=== PATIENT | male | born 2000 | race Caucasian/White ===

== ENCOUNTER 2021-11-18 18:07 | Emergency (ER) | payer OTHER, SELFPAY ==
[2021-11-18 18:18] VITALS: BP 139/82; PULSE 68; RESP 16; TEMP 36.9; O2SAT 100
--- NOTE | 2021-11-18 18:57 | ED.URI ---
HPI - URI/Sore Throat General Chief Complaint: Upper Respiratory Infection Stated Complaint: Shortness of Breath/Cough Time Seen by Provider: 11/18/21 18:57 Source: patient, RN notes reviewed and old records reviewed Mode of arrival: ambulatory Limitations: no limitations History of Present Illness HPI Narrative: 21-year-old male who presents to [facility] with complaints of shortness of breath and cough which has been going on for 1 week duration. Patient states he has not had a fever chills or sweats denies any sore throat or any ear pain does admit to some sinus drainage and some nasal congestion. Patient reports that his friend has been ill also. He does have history of vaping MD elicited complaint: cough, rhinorrhea and nasal congestion Onset (ago): week(s) (1) Related Data Allergies Allergy/AdvReac Type Severity Reaction Status Date / Time No Known Allergies Allergy Verified 11/18/21 18:26 Review of Systems Review of Systems: CONSTITUTIONAL: Denies fever, chills, or sweats. EYES: Denies visual changes, redness, or discharge. ENT:Positive for rhinorrhea, congestion,no sore throat, or otalgia. CARDIOVASCULAR: chest pain associated with cough,no palpitations, or edema. RESPIRATORY: Positive cough or dyspnea. GASTROINTESTINAL: Denies abdominal pain, nausea, vomiting, or diarrhea. GENITOURINARY: Denies dysuria or hematuria. SKIN: Denies rash or itching. MUSCULOSKELETAL: Denies back pain, joint pain, or myalgia. NEUROLOGIC: Denies headache, numbness, or weakness. PSYCHIATRIC: Positive for history of anxiety or depression. [facility] Past Medical History Medical History (Updated 11/19/21 @ 21:10 by Heidi Wright NP) Fracture of left wrist Generalized anxiety disorder Social History Social History (Updated 11/06/21 @ 10:08 by Amelie Mayfield CMA) Smoking status: Current every day smoker Tobacco type: e-cigarettes/vaping Alcohol intake: current Substance use: never Additional occupation/education comments: [employer] Gender identity (if verbalized by the patient): Male Comments At time of signature, agree with nursing past medical, surgical, social and family history. There is no relevant family history pertinent to the presenting complaint Exam Narrative: GENERAL: Well-appearing, well-nourished, and in no acute distress. HEAD: Normocephalic, atraumatic. EYES: PERRLA and EOMI. ENT: Nares red swollen with clear rhinorrhea or epistaxis. Mucous membranes moist.TM's normal with good light reflex,throat with mild redness no tonsil swelling NECK: Supple.no lymphadenopathy CHEST: Clear to auscultation. No respiratory distress.acute coughSAO2 100% on room air HEART: Regular rate and rhythm. No murmur heard. Normal peripheral pulses. ABDOMEN: Soft, nontender, nondistended, normal active bowel sounds. EXTREMITIES: Normal range of motion. No edema. SKIN: Warm, dry, no rash. NEURO: No focal deficits. Alert and oriented x3. Course Course Level of Care: Express Care Visit Vital Signs Vital signs: Vital Signs Temperature 36.9 C 11/18/21 18:18 Pulse Rate 68 11/18/21 18:18 Respiratory Rate 16 11/18/21 18:18 Blood Pressure 139/82 11/18/21 18:18 Pulse Oximetry 100 11/18/21 18:18 Temperature 36.9 C 11/18/21 18:18 Pulse Rate 68 11/18/21 18:18 Respiratory Rate 16 11/18/21 18:18 Blood Pressure 139/82 11/18/21 18:18 Pulse Oximetry 100 11/18/21 18:18 MDM - URI/Sore Throat Differential Diagnosis Differential diagnosis: Likely upper respiratory infection, influenza, pharyngitis and other (acute cough) Medical Records Attestation: I reviewed the patient's medical records. Critical Care Time Critical Care Time Critical Care Time: No Discharge Plan Discharge Clinical Impression: Upper respiratory infection, Acute cough Patient Disposition: Home, Self-Care Condition: Stable Instructions: Upper Respiratory Infection (ED), Acute Cough (ED) Additional Instr
== END 2021-11-18 19:19 | disposition home or self-care (01) ==
PROVIDERS: Emergency Provider Registered Nurse
DX: J06.9 Acute upper respiratory infection, unspecified (principal); F17.290 Nicotine dependence, other tobacco product, uncomplicated
CPT/HCPCS: 99213; G0463

== ENCOUNTER 2025-01-12 08:20 | Emergency (ER) | payer OTHER, SELFPAY ==
[2025-01-12 08:30] VITALS: BP 140/86; PULSE 60; RESP 20; TEMP 36.7; O2SAT 100
--- NOTE | 2025-01-12 08:56 | ED.BACK ---
HPI - Back Pain/Injury General Chief Complaint: Back Pain/Injury Stated Complaint: herniated disc, lower back pain Patient presents to the [facility] accompanied by family with complaints of lower back pain that started last night. Denies any specific injury or trauma to the area. This morning upon waking pain was worse patient attempted to take 2 ibuprofen without relief of symptoms. Patient states pain is worse with. Does have some pain that goes down into left buttock and down the back of left leg. Denies numbness, tingling, weakness, urinary symptoms, rash, or swelling. Related Data Allergies Allergy/AdvReac Type Severity Reaction Status Date / Time No Known Allergies Allergy Verified 02/02/22 12:55 Review of Systems Constitutional: Constitutional: Reports as per HPI, Denies chills, Denies fatigue, Denies fever(s) and Denies weakness Eyes: Eyes: Reports no additional eye complaints Cardiovascular: Cardiovascular: Reports no additional cardiovascular complaints Respiratory: Respiratory: Reports no additional respiratory complaints Gastrointestinal: Gastrointestinal: Reports no additional gastrointestinal complaints Genitourinary: Genitourinary: Reports as per HPI, Denies oliguria, Denies dysuria, Denies testicular pain, Denies urinary frequency and Denies urinary incontinence Musculoskeletal: Musculoskeletal: Reports as per HPI, Reports back pain, Denies myalgias, Denies arthralgias, Denies joint swelling and Reports muscle cramps Integumentary/Breasts: Skin/Breast: Reports as per HPI Neurologic: Reports as per HPI, Denies focal weakness, Denies numbness and Denies weakness Psychiatric: Psychiatric: Reports no additional psychiatric complaints Endocrine: Endocrine: Reports no additional endocrine complaints Hematologic/Lymphatic: Hematologic/Lymphatic: Reports no additional hematologic/lymphatic complaints Allergic/Immunologic: Allergic/Immunologic: Reports no additional allergic/immunologic complaints PMFSH Past Medical History Medical History Fracture of left wrist Generalized anxiety disorder Social History Social History Smoking status: Current every day smoker Tobacco type: e-cigarettes/vaping Alcohol intake: current Substance use: never Living arrangements: with family Occupation/Education: occupation Additional occupation/education comments: [employer] Gender identity (if verbalized by the patient): Male Exam Const: General: healthy appearing and no acute distress Nutritional Appearance: well nourished Orientation/consciousness: patient oriented x3 Limitations: no limitations Resp: Effort & Inspection: normal respiratory effort Cardio: Rate: regular rate GI: Inspection: non-distended Auscultation: normal bowel sounds : General: Yes bladder normal to palpation and Yes no CVA tenderness Back/Spine/Pelvis: Back: no CVA tenderness Other: No vertebral tenderness noted to the thoracic or lumbar spine. Muscle spasms noted to lower back. No SI or buttocks tenderness. No para spinal muscle tenderness. No rash, redness, swelling or bruising. Skin: General skin exam: normal color Rashes: no rashes Wounds: no wounds Neuro: General: patient oriented x3 and moves all extremities Speech: normal speech Gait exam (Neuro): Normal gait present Extrem: General: normal to inspection, no clubbing, cyanosis or edema, no pedal edema and no edema Psych: Mental Status: mental status grossly normal Affect: normal affect Attitude: cooperative Course Course Level of Care: Express Care Visit Vital Signs Vital signs: Vital Signs Temperature 98.0 F 01/12/25 08:30 Pulse Rate 60 01/12/25 08:30 Respiratory Rate 20 01/12/25 08:30 Blood Pressure 140/86 01/12/25 08:30 Pulse Oximetry 100 01/12/25 08:30 Oxygen Delivery Room Air 01/12/25 08:30 Temperature 98.0 F 01/12/25 08:30 Pulse Rate 60 01/12/25 08:30 Respiratory Rate 20 01/12/25 08:30 Blood Pressure 140/86 01/12/25 08:30 Pulse Oximetry 100 01/12/25 08:30 Oxygen Delivery Room Air 01/12/25 08:30 MDM - Back Pain/Injury MDM Narrative Medical decision making narrative: After Toradol injection while in Express Care. Patient declines. Discharge instructions reviewed with patient, as well as provided in writing per nursing staff. The instructions also include specific and strict return/GO TO THE ER as well as f/u information. All questions have been answered, and the patient deny any further questions with discharge and discharge plan. Differential Diagnosis Differential diagnosis: Likely lumbar radiculopathy, sciatica, strain of lumbar region, renal colic, pyelonephritis and discitis Medical Records Attestation: I reviewed the patient's medical records. Discharge Plan Discharge Clinical Impression: Strain of lumbar region Patient Disposition: Home Condition: Stable Instructions: Antibiotic Form, Acute Low Back Pain (ED), Lower Back Exercises (ED) Additional Instructions: Take pain medications as directed. Take naproxen as directed to decrease inflammation and to help pain. Take Robaxin (muscle relaxer) as directed. Do not drink, drive, operate machinery, or do anything dangerous while taking this medication Take Tramadol as directed for more severe pain. Do not drink, drive, operate machinery, or do anything dangerous while taking this medication. Exercise:Combine aerobic exercise, like walking or swimming, with specific exercises to keep the muscles in your back and abdomen strong and flexible. Proper Lifting:Be sure to lift heavy items with your legs, not your back. Do not bend over to pick something up. Keep your back straight and bend at your knees. Weight:Maintain a healthy weight. Being overweight puts added stress on your lower back. Avoid Smoking:Both the smoke and the nicotine cause your spine to age faster than normal. Proper Posture:Good posture is important for avoiding future problems. A therapist can teach you how to safely stand, sit, and lift. Use warm moist heat to help with pain. Follow up with Primary provider in 2-3 days, This may become a chronic condition and they will be the one to help manage your pain and order additional testing. Follow-up with your doctor for further care and evaluation or seek ER if you develop problems with bladder/bowel function, weakness or loss of feeling in one or both of your legs. Patient Language: Hebrew Prescriptions: New naproxen 500 mg tablet 500 mg PO BID PRN (Reason: pain) Qty: 40 0RF methocarbamol 750 mg tablet 750 mg PO TID PRN (Reason: muscle pain) Qty: 30 0RF No Action albuterol sulfate 90 mcg/actuation HFA aerosol inhaler 2 puff inhalation QID PRN (Reason: shortness of breath or wheezing) Qty: 8.5 0RF Follow-up/Referrals: UNKNOWN,DOCTOR [Primary Care Provider] - Stand Alone Forms: Work/School Release IP Time of Disposition: 09:09
== END 2025-01-12 09:15 | disposition home or self-care (01) ==
PROVIDERS: Emergency Provider Nurse Practitioner Family
DX: S39.012A Strain of muscle, fascia and tendon of lower back, initial encounter (principal); F17.290 Nicotine dependence, other tobacco product, uncomplicated; X58.XXXA Exposure to other specified factors, initial encounter
CPT/HCPCS: 99213; G0463

== ENCOUNTER 2025-02-24 10:12 | Emergency (ER) | payer OTHER, SELFPAY ==
--- OUTSIDE RECORDS SUMMARY | 2025-02-24 10:14 | XMS_ITS | Clinical Summary ---
Author Organization [facility] [address] Address [address] [place] [address] Care Team Providers Care Traffic Director Name Role Phone Stephanie Lomax MD Primary Care Pro vider Allergies No known active allergies Medications No known medications Active Problems No known active problems Social History Tobacco Use Types Packs/Day Years Used Date Smoking Tobacco: Former Cigarettes 0.1 1 Smokeless Tobacco: Never Personal Safety Answer Date Recorded Getting School Help Needed Not on file 09/30 Sex and Gender Information Value Date Recorded Sex Assigned at Not on file Legal Sex 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 Gender Identity Not on file Sexual Orientation Not on file 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 Not on file Not on file Not on file Obstetrics History Last Filed Vital Signs Vital Sign Reading Time Taken Comments Blood Pressure 135/77 03/24/2021 10:43 PM CDT Pulse 76 03/24/2021 10:43 PM CDT Temperature 36.5 C (97.7 F) 03/24/2021 10:43 PM CDT Respiratory Rate 16 03/24/2021 10:43 PM CDT Oxygen Saturation 98% 03/24/2021 10:43 PM CDT Inhaled Oxygen Concentration - - Weight 81.6 kg (180 lb) 03/24/2021 10:43 PM CDT Height 185.4 cm (6' 1) 03/24/2021 10:43 PM CDT Body Mass Index 23.75 03/24/2021 10:43 PM CDT Plan of Treatment Not on file Insurance [facility] Care Teams Traffic Director Relationship Specialty Start Date End Date Stephanie Lomax MD PCP - General 04/09/17
--- OUTSIDE RECORDS SUMMARY | 2025-02-24 10:14 | XMS_ITS | Clinical Summary ---
Author Organization [facility] Address [address] [place] [address] Phone Care Team Providers Care Sales Record Clerk Name Role Phone Provider, None Primary Care Provider Unavailabl e Allergies No known active allergies Medications albuterol 108 (90 Base) MCG/ACT Aerosol Solution take 2 Puffs by inhalation every 4 hours as needed for Cough. 8.5 g 9 Active Additional Information Patient not taking.Reported on 01/03/2025 pseudoephedrine -guaiFENesin (MUCINEX D) 60-600 MG TABLET SR 12 HR Take 1 Tab by mouth every 12 hours. 9 Active Additional Information Patient not taking.Reported on 01/03/2025 ondansetron (ZOFRAN-ODT) 4 MG TABLET DISPERSIBLEIndi cations:Gastroe nteritis Take 1 Tab by mouth every 8 hours as needed for Nausea - 1st line. 10 Tab 9 Active Additional Information Patient not taking.Reported on 01/03/2025 ondansetron (ZOFRAN-ODT) 4 MG TABLET DISPERSIBLEIndi cations:Gastroe nteritis Take 1 Tablet by mouth every 8 hours as needed for Nausea - 1st line. 10 Tablet 4 Active Additional Information Patient not taking.Reported on 01/03/2025 chlorhexidine (PERIDEX) 0.12 % SolutionIndicat ions:Dental abscess 15 mL by Swish & Spit route 2 times daily. 473 mL 5 Active Active Problems No known active problems Encounters Date Type Department Care Team Description 01/03/2025 2:20 PM CDT Urgent Care Visit [facility] [address] [place] [address] Danni Richards, PANELBOARD TANK PUMPER, PARAFFIN PLANT OPERATOR Dental abscess (Primary Dx) Discharge Disposition: Discharged to home or Selfcare 01/03/2025 Travel from Last 3 Months Family History Medical History Relation Name Comments No Known Problems Father No Known Problems Mother Relation Name Status Comments Father Alive Mother Alive Social History Tobacco Use Types Packs/Day Years Used Date Smoking Tobacco: Former Cigarettes Smokeless Tobacco: Former Chew Tobacco Cessation:Counseling Given: Not Answered Alcohol Use Standard Drinks/Week Comments Yes 0 (1 standard drink = 0.6 oz pur e alcohol) socially Sexually Active Control Partners Comments Yes Male Condom Female Sex and Gender Information Value Date Recorded Sex Assigned at Not on file Legal Sex Male 1:33 PM PELT SHEARER Gender Identity Not on file Sexual Orientation Not on file Last Filed Vital Signs Vital Sign Reading Time Taken Comments Blood Pressure 120/66 01/03/2025 2:27 PM CDT Pulse 95 01/03/2025 2:27 PM CDT Temperature 36.6 C (97.9 F) 01/03/2025 2:27 PM CDT Respiratory Rate 16 01/03/2025 2:27 PM CDT Oxygen Saturation 98% 01/03/2025 2:27 PM CDT Inhaled Oxygen Concentration - - Weight 81.6 kg (180 lb) 07/22/2018 2:02 PM PELT SHEARER Height 188 cm (6' 2) 07/22/2018 2:02 PM PELT SHEARER Body Mass Index 23.11 07/22/2018 2:02 PM PELT SHEARER Plan of Treatment Health Maintenance Due Date Last Done Comments Hepatitis C Virus (HCV) Screening 2000 SARS-COV-2 Immunization (2023- season) 2024 Influenza Immunization (#1) 2025 04/21/2012 Respiratory Syncytial Virus (RSV) Immunization (Adult) (1 - 1-dose 75+ series) 01/24/2075 Pneumococcal Immunization Combined Aged Out 2000, 2000, 2000 No longer eligible based on patient's age to complete this topic Hepatitis B Immunization Completed 002, 2000, 2000, Additional history exists DTaP/Tdap/Td Immunization Discontinued 2010, 01/26/2005, 05/23/2001, Additional history exists TdaP Immunization Completed 04/21/2011 Human Papillomavirus (HPV) Immunization Completed 01/10/2015, 01/09/2014, 02/07/2013 Meningococcal Immunization (ACWY) Completed 02/24/2016, 04/21/2011 Rotavirus Immunization Aged Out No lo nger eligible based on patient's age to complete this topic Insurance [facility] Care Teams Sales Record Clerk Relationship Specialty Start Date End Date Provider, None [place] PCP - General 07/22/18
[2025-02-24 10:17] VITALS: BP 142/85; PULSE 58; RESP 18; TEMP 36.7; O2SAT 100
--- NOTE | 2025-02-24 10:31 | ED.DENTAL ---
HPI - Dental/Oral General Chief complaint: Dental/Oral Stated complaint: Tooth pain Time Seen by Provider: 02/24/25 10:27 Source: patient, family (Significant other) and RN notes reviewed Mode of arrival: ambulatory Limitations: no limitations History of Present Illness HPI Narrative: Patient presents today complaining of right lower jaw pain x3 days. Denies fever, shortness of breath, trismus, difficulty swallowing. States his top molar is broken and is poking the bottom teeth and gumline. He has an appointment with an oral surgeon in in April. Currently rates his pain 8/10 and has tried Tylenol without relief. His regular dentist appears to have given him some antibiotics a few months ago, but he states cannot do anything further for his tooth. Related Data Allergies Allergy/AdvReac Type Severity Reaction Status Date / Time No Known Allergies Allergy Verified 02/24/25 10:23 [facility] Past Medical History Medical History Fracture of left wrist Generalized anxiety disorder Social History Social History Smoking status: Current every day smoker Tobacco type: e-cigarettes/vaping Alcohol intake: current Substance use: never Living arrangements: with family Occupation/Education: occupation Additional occupation/education comments: [employer] Gender identity (if verbalized by the patient): Male Comments At time of signature, I have reviewed and agree with nursing past medical, surgical, social and family history unless otherwise noted. Please see nursing chart for further information. There is no relevant family history pertinent to the presenting complaint Exam Narrative: GENERAL: Well-appearing, well-nourished, and in moderate pain distress. HEAD: Normocephalic, atraumatic. EYES: EOMI. No redness or drainage. Conjunctivae normal. ENT: Mucous membranes pink and moist. No facial swelling or redness noted. Tenderness the right lower jaw line. Pain to tooth number 31 with mild surrounding erythema and edema of the gumline. No obvious periapical abscess. NECK: Normal AROM. Supple. No lymphadenopathy. No swelling or erythema of the neck. CHEST: No respiratory distress. EXTREMITIES: Normal range of motion. No edema. SKIN: Warm, dry, no rash. Capillary refill normal. Normal skin turgor. NEURO: No focal deficits. Alert and oriented x3. Gait steady. PSYCH: Normal affect. No signs of depression or anxiety. Course Course Level of Care: Express Care Visit Vital Signs Vital signs: Vital Signs Temperature 98.1 F 02/24/25 10:17 Pulse Rate 58 L 02/24/25 10:17 Respiratory Rate 18 02/24/25 10:17 Blood Pressure 142/85 H 02/24/25 10:17 Pulse Oximetry 100 02/24/25 10:17 Oxygen Delivery Room Air 02/24/25 10:17 Temperature 98.1 F 02/24/25 10:17 Pulse Rate 58 L 02/24/25 10:17 Respiratory Rate 18 02/24/25 10:17 Blood Pressure 142/85 H 02/24/25 10:17 Pulse Oximetry 100 02/24/25 10:17 Oxygen Delivery Room Air 02/24/25 10:17 Reviewed MDM - Dental/Oral MDM Narrative Medical decision making narrative: 25-year-old male patient presents today with severe right lower dental pain x3 days. States he has an appointment with oral surgery and knocked over to take care of this tooth. Upon exam, there is some erythema and edema of the surrounding gum line of tooth number 31. No obvious lower jaw swelling, but there is tenderness to the jaw. No swelling to the neck. No fever, trismus, shortness of breath. Patient will be treated with a course of amoxicillin and short course of Blanco. He will follow-up with oral surgeon during that appointment he is already [place] in April.. ED precautions given. Vital signs stable. Differential Diagnosis Differential diagnosis: Likely gingival abscess, dental caries, toothache, dental abscess and fracture of tooth Critical Care Time Critical Care Time Critical Care Time: No Discharge Plan Discharge Clinical Impression: Pain, dental Patient Disposition: Home Condition: Stable Instructions: Antibiotic Form, Toothache (ED) Additional Instructions: Take the amoxicillin as prescribed until gone. Take the hydrocodone as prescribed for severe pain. Take Tylenol or ibuprofen for mild pain. Do not drive within 6 hours of taking the hydrocodone as it can make you drowsy. Follow-up with oral surgeon as scheduled. As discussed, if you develop fever, significant facial swelling, difficulty opening your mouth, shortness of breath or difficulty swallowing, please go to the ER immediately for further evaluation and treatment. Your blood pressure was elevated above 120/80 today at Urgent Care. This puts you above the threshold for follow up. Please schedule a followup visit with your personal physician as soon as possible, for further evaluation and treatment. Even blood pressure exceeding 120/80 may indicate pre-hypertension. Patient Language: Martiniquais Prescriptions: New amoxicillin 875 mg tablet 875 mg PO Q12H 10 Days Qty: 20 0RF hydrocodone-acetaminophen 5-325 mg tablet 1 tablet PO Q6H PRN (Reason: pain) Qty: 10 0RF Follow-up/Referrals: PHYSICIAN,TELEVISION PRODUCTION TECHNICIAN [Primary Care Provider] - Time of Disposition: 10:36
== END 2025-02-24 10:38 | disposition home or self-care (01) ==
PROVIDERS: Emergency Provider Nurse Practitioner
DX: K08.89 Other specified disorders of teeth and supporting structures (principal); F17.290 Nicotine dependence, other tobacco product, uncomplicated
CPT/HCPCS: 99213; G0463

== ENCOUNTER 2025-02-28 15:24 | Emergency (ER) | payer OTHER, SELFPAY ==
--- OUTSIDE RECORDS SUMMARY | 2025-02-28 15:28 | XMS_ITS | Clinical Summary ---
Author Organization [facility] Medical Office Building B Address [address] [place] [address] Care Team Providers Care Willow Worker Name Role Phone Stephanie Lomax MD Primary Care Pro vider Allergies No known active allergies Medications clindamycin (CLEOCIN) 300 mg capsule Take 1 capsule (300 mg total) by mouth 3 (three) times a day for 7 days 21 capsule 5 03/04/20 25 Active ondansetron ODT (ZOFRAN-ODT) 4 mg disintegrating tablet Take 1 tablet (4 mg total) by mouth every 8 (eight) hours as needed for nausea or vomiting 20 tablet 5 Active Active Problems No known active problems Encounters Date Type Department Care Team Description 02/25/2025 8:04 PM CDT - 02/25/2025 11:48 PM CDT Emergency [facility] Emergency Department [address] [place] [address] Dental infection (Primary Dx) Discharge Disposition: Discharge to home or self care from Last 3 Months Social History Tobacco Use Types Packs/Day Years Used Date Smoking Tobacco: Former Cigarettes 0.1 1 Smokeless Tobacco: Never Personal Safety Answer Date Recorded Have you ever been in or are you currently in a harmful physical or emotional relationship or is someone making you feel afraid or unsafe? 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 Not on file Not on file Obstetrics History Last Filed Vital Signs Vital Sign Reading Time Taken Comments Blood Pressure 152/80 02/25/2025 11:45 PM CDT Pulse 95 02/25/2025 11:45 PM CDT Temperature 37.1 C (98.8 F) 02/25/2025 5:01 PM CDT Respiratory Rate 16 02/25/2025 8:05 PM CDT Oxygen Saturation 99% 02/25/2025 11:45 PM CDT Inhaled Oxygen Concentration - - Weight 81.6 kg (180 lb) 02/25/2025 5:03 PM CDT Height 188 cm (6' 2) 02/25/2025 5:03 PM CDT Body Mass Index 23.11 02/25/2025 5:03 PM CDT Plan of Treatment Health Maintenance Due Date Last Done Comments Depression Screening 2000 Hepatitis C Screening 2000 Regular Well Visit/Exam 18-64 01/24/2018 DTaP/Tdap/Td Vaccine (7 - Td or Tdap) 04/21/2021 04/21/2011, 01/26/2005, 05/23/2001, Additional history exists Influenza Vaccine (#1) 2025 04/21/2012 Pneumococcal vaccine <65 Aged Out 001, 2000, 2000 No longer eligible based on patient's age to complete this topic Hepatitis B Screening Completed 08/15/2001 , 2000, 2000, Additional history exists Varicella Vaccines Completed 04/21/2011, 01/31/2001 HPV Vaccines Completed 01/10/2015, 12/17, 02/07/2013 Procedures Procedure Name Priority Date/Time Associated Diagnosis Comments CT SOFT TISSUE NECK W CONTRAST ED 02/25/2025 10:16 PM CDT EGFR STAT 02/25/2025 8:31 PM CDT DIFFERENTIAL AUTO STAT 02/25/2025 8:3 1 PM CDT SEPSIS LACTATE WITH REFLEX Routine 02/25/2025 8:31 PM CDT COMPREHENSIVE METABOLIC PANEL STAT 02/25/2025 8:31 PM CDT CBC WITH AUTO DIFFERENTIAL STAT 02/25/2025 8:31 PM CDT from Last 3 Months Results * CT Neck Soft Tissue W Contrast (02/25/2025 10:16 PM CDT) Anatomical Region Laterality Modality Head and Neck N/A Computed Tomogra phy 02/25/2025 10:3 9 PM CDT Narrative 02/25/2025 10:46 PM CDT EXAM DESCRIPTION: CT SOFT TISSUE NECK W CONTRAST REASON FOR STUDY: Neck mass, nonpulsatile C/o right sided neck swelling and pain x 1 day. Pt taking hydrocodone and amoxicillin for a dental infection. No surgical hx TECHNIQUE: Post IV contrast scanning from skull base through lung apices. Reconstructed MPR images reviewed. All images stored on PACS. Automated exposure control was used as a dose optimization technique for this examination. CONTRAST TYPE/DOSE: 75mL of IOVERSOL 350 MG IODINE/ML INTRAVENOUS SYRINGE injected via intravenous COMPARISON: None FINDINGS: SOFT TISSUE: The soft tissues within the right flue cleaner space medial to the right mandible ramus appears swollen and indistinct. Fluid appears to infiltrate the soft tissues here. The posterior pharynx is deviated to the left. This appearance is most suggestive of a infectious process. This may represent a phlegmon. No clearly defined abscess is seen at this time. Strandy fluid is seen in the adjacent soft tissues. ORAL CAVITY/FLOOR OF MOUTH, PHARYNX, LARYNX, HYPOPHARYNX: See above LYMPHADENOPATHY: Lymph nodes are seen in the right neck which are likely reactive. MAJOR SALIVARY GLANDS: No solid or cystic masses. No inflammatory changes. THYROID: Normal size. No nodules greater than 1 cm. VASCULATURE: No apparent critical stenosis or occlusion. INTRACRANIAL/SKULL BASE/INCLUDED ORBITS: Limited intracranial evaluation. No abnormal findings. PARANASAL SINUSES: Well-aerated. CERVICAL SPINE: No significant abnormalities. LUNG APICES: Clear. OTHER: Bilateral posterior dental caries are noted IMPRESSION: 1. Soft tissue swelling and fluid in the right flue cleaner space medial to the right mandible ramus. This appearance is most suggestive of a infectious process. This may represent a phlegmon. No clearly defined abscess is seen at this time. The posterior pharynx is deviated to the left. 2. Bilateral posterior dental caries are noted. THIS IS AN ELECTRONICALLY VERIFIED FINAL REPORT 02/25/2025 10:46 PM - Electronically signed by Denzel Navarro M.D. KH: SANDY Report ID: [id number] Reading Location: [id number] Procedure Note Denzel Navarro MD - 02/25/2025 EXAM DESCRIPTION: CT SOFT TISSUE NECK W CONTRAST REASON FOR STUDY: Neck mass, nonpulsatile C/o right sided neck swelling and pain x 1 day. Pt taking hydrocodone and amoxicillin for a dental infection. No surgical hx TECHNIQUE: Post IV contrast scanning from skull base through lung apices. Reconstructed MPR images reviewed. All images stored on PACS. Automated exposure control was used as a dose optimization technique for this examination. CONTRAST TYPE/DOSE: 75mL of IOVERSOL 350 MG IODINE/ML INTRAVENOUSSYRINGE injected via intravenous COMPARISON: None FINDINGS: SOFT TISSUE: The soft tissues within the right flue cleaner space medialto the right mandible ramus appears swollen and indistinct. Fluid appears to infiltrate the soft tissues here. The posterior pharynx is deviated tothe left. This appearance is most suggestive of a infectious process. Thismay represent a phlegmon. No clearly defined abscess is seen at this time. Strandy fluid is seen in the adjacent soft tissues. ORAL CAVITY/FLOOR OF MOUTH, PHARYNX, LARYNX, HYPOPHARYNX: See above LYMPHADENOPATHY: Lymph nodes are seen in the right neck which are likely reactive. MAJOR SALIVARY GLANDS: No solid or cystic masses. No inflammatorychanges. THYROID: Normal size. No nodules greater than 1 cm. VASCULATURE: No apparent critical stenosis or occlusion. INTRACRANIAL/SKULL BASE/INCLUDED ORBITS: Limited intracranialevaluation. No abnormal findings. PARANASAL SINUSES: Well-aerated. CERVICAL SPINE: No significant abnormalities. LUNG APICES: Clear. OTHER: Bilateral posterior dental caries are noted IMPRESSION: 1. Soft tissue swelling and fluid in the right flue cleaner space medialto the right mandible ramus. This appearance is most suggestive of ainfectious process. This may represent a phlegmon. No clearly defined abscess is seenat this time. The posterior pharynx is deviated to the left. 2. Bilateral posterior dental caries are noted. THIS IS AN ELECTRONICALLY VERIFIED FINAL REPORT 02/25/2025 10:46 PM - Electronically signed by Denzel Navarro M.D. KH: SANDY Report ID: [id number] Reading Location: [place] [address] PROCEDURES Final Result * Sepsis Lactate w/ Reflex (02/25/2025 8:31 PM CDT) Sepsis Lactate 1.1 0.7 - 2.0 mmol/L Blood 02/25/2025 8:31 PM CDT 02/25/2025 8:42 PM CDT Patricia MARTIN LAB BLOOD ORDERABLES Final Resu lt [facility] [place] [facility] Department [place] [address] * eGFR (02/25/2025 8:31 PM CDT) eGFR >90 >=60 mL/min/1. 73 m2 Comment: Interpretive Data Reference Interval Normal >/= 90 mL/min/1.73m2 Mildly decreased* 60 - 89 mL/min/1.73m2 Mildly to moderately decreased 45 - 59 mL/min/1.73m2 Moderately to severely decreased 30 - 44 mL/min/1.73m2 Severely decreased 15 - 29 mL/min/1.73m2 Kidney Failure < 15 mL/min/1.73m2 *Relative to young adult level Estimated glomerular filtration rate is determined by the 2020 CKD-EPI equation recommended by the National Kidney Foundation (A Unifying Approach to GFR Estimation: Recommendations of the NKF-ASK Task Force on Reassessing the Inclusion of Race in Diagnosing Kidney Disease, JASN 2020). The CKD-EPI equation should not be used for patients with unstable renal function and has not been validated in children and those over 70. Current interpretive data was last reviewed 2021. Blood 02/25/2025 8:31 PM CDT 02/25/2025 8:42 PM CDT us Patricia MARTIN LAB BLOOD ORDERABLES Final Resu lt [facility] ([place]) [facility] Department [place] [address] * (ABNORMAL) Differential, auto (02/25/2025 8:31 PM CDT) Neutrophil abs 8.04(H) 1.50 - 6.50 K/cumm Imm gran abs 0.04 0.00 - 0.10 K/cumm [facility] Lymphocyte abs 1.27 0.80 - 3.30 K/cumm [facility] Monocyte abs 1.72(H) 0.20 - 0.80 K/cumm [facility] Eosinophil abs 0.01 0.00 - 0.50 K/cumm [facility] Basophil abs 0.04 0.00 - 0.10 K/cumm [facility] Neutrophil pct 72.2 % [facility] Comment: Interpretive Data Percent cell count reference ranges are not reported, since discordance with absolute values may lead to misinterpretation of CBC data. Current Interpretive Data was last revised on 2017. Imm gran pct 0.4 % [facility] Comment: Interpretive Data Percent cell count reference ranges are not reported, since discordance with absolute values may lead to misinterpretation of CBC data. Current Interpretive Data was last revised on 2017. Lymphocyte pct 11.4 % [facility] Comment: Interpretive Data Percent cell count reference ranges are not reported, since discordance with absolute values may lead to misinterpretation of CBC data. Current Interpretive Data was last revised on 2017. Monocyte pct 15.5 % [facility] Comment: Interpretive Data Percent cell count reference ranges are not reported, since discordance with absolute values may lead to misinterpretation of CBC data. Current Interpretive Data was last revised on 2017. Eosinophil pct 0.1 % [facility] Comment: Interpretive Data Percent cell count reference ranges are not reported, since discordance with absolute values may lead to misinterpretation of CBC data. Current Interpretive Data was last revised on 2017. Basophil pct 0.4 % [facility] Comment: Interpretive Data Percent cell count reference ranges are not reported, since discordance with absolute values may lead to misinterpretation of CBC data. Current Interpretive Data was last revised on 2017. Blood 02/25/2025 8:31 PM CDT 02/25/2025 8:42 PM CDT us Patricia MARTIN LAB BLOOD ORDERABLES Final Resu lt [facility] ([place]) [facility] Department [place] [address] * (ABNORMAL) CBC with auto differential (02/25/2025 8:31 PM CDT) WBC 11.12(H) 3.80 - 9.90 K/cumm Hgb 14.4 13.0 - 17.5 g/dL [facility] Hct 42.1 38.9 - 50.3 % [facility] Plt 223 150 - 400 K/cumm [facility] MPV 8.7(L) 9.1 - 12.3 fL [facility] RBC 5.01 4.30 - 5.80 M/cumm [facility] MCV 84.0 81.3 - 96.4 fL [facility] MCH 28.7 27.1 - 33.3 pg [facility] MCHC 34.2 32.3 - 35.7 g/dL [facility] RDW CV 11.9 11.1 - 14.9 % [facility] RDW SD 36.0 35.7 - 48.1 fL [facility] NRBC abs 0.00 0.00 - 0.01 K/cumm [facility] Blood 02/25/2025 8:31 PM CDT 02/25/2025 8:42 PM CDT us Patricia MARTIN LAB BLOOD ORDERABLES Final Resu lt [facility] ([place] Department [place] [address] * (ABNORMAL) Comprehensive metabolic panel (02/25/2025 8:31 PM CDT) Sodium 137 135 - 145 mmol/L [facility] Potassium, pl 4.0 3.3 - 4.9 mmol/L [facility] Chloride 97 97 - 110 mmol/L [facility] CO2 22 22 - 32 mmol/L [facility] Anion gap 18(H) 2 - 15 mmol/L [facility] BUN 9 6 - 25 mg/dL [facility] Creatinine 0.92 0.80 - 1.30 mg/dL [facility] Glucose 91 70 - 199 mg/dL [facility] Comment: Interpretive Data Fasting glucose >/= 126 mg/dl is diagnostic for diabetes. Fasting is defined as no caloric intake for at least 8 hours. Fasting glucose between 100 mg/dl to 125 mg/dl is diagnostic of prediabetes. In a patient with classic symptoms of hyperglycemia or hyperglycemic crisis, a random glucose >/= 200 mg/dl is diagnostic for diabetes. In the absence of unequivocal hyperglycemia, results should be confirmed by repeat testing. The classification and Diagnosis of Diabetes Diabetes Care 202; 46: S19-S40. Current interpretive data was last revised 2022. Calcium 9.8 8.5 - 10.3 mg/dL [facility] Bilirubin, total 1.0 0.1 - 1.2 mg/dL [facility] Protein, pl 8.0 6.5 - 8.5 g/dL [facility] Albumin 4.8 3.5 - 5.0 g/dL [facility] Alk phos 54 40 - 130 Units/L [facility] ALT 9 7 - 55 Units/L [facility] AST 14 10 - 50 Units/L [facility] Blood 02/25/2025 8:31 PM CDT 02/25/2025 8:42 PM CDT us Patricia MARTIN LAB BLOOD ORDERABLES Final Resu lt [facility] ([place] Department [place] [address] from Last 3 Months Insurance Member Subscriber Plan / Payer (Ef fective 2019-Present) Name:Elio Angel Relation to Subscriber:Other Relationship Name:JOSEPH ANGEL Date of :1973 (Home) Address: [facility] [place] [address] Payer ID:[id number] (NAIC) Type:[facility] HMO/PPO Address: [address] [facility] CHOICE PLUS Care Teams Willow Worker Relationship Specialty Start Date End Date Stephanie Lomax MD PCP - General 04/09/17
--- OUTSIDE RECORDS SUMMARY | 2025-02-28 15:28 | XMS_ITS | Clinical Summary ---
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
[2025-02-28 15:30] VITALS: BP 143/74; PULSE 60; RESP 20; TEMP 36.9; O2SAT 100
--- NOTE | 2025-02-28 16:08 | ED_ITS ---
HPI - Dental/Oral General Chief complaint: Dental/Oral Stated complaint: swelling under tongue/tooth infection Time Seen by Provider: 02/28/25 15:46 Source: patient and RN notes reviewed Mode of arrival: ambulatory Limitations: no limitations History of Present Illness HPI Narrative: Patient presents today complaining of right lower dental pain and facial swelling. Patient was initially seen here at [facility] on 02/24/2025 and prescribed amoxicillin and Gail. States symptoms were not improving in the days following, so he was subsequently seen in the ER at [facility] on 02/26/2025. Reports that a CT scan was done at that time and was negative, and he was discharged home on a prescription for clindamycin and Zofran. He has not been taking the Zofran, but has been taking the clindamycin as prescribed. Since being discharged, patient states his swelling has gotten worse. Also reporting swelling underneath his tongue since last night as well as difficulty opening his mouth and feeling as though there is something in his throat. He denies fever or shortness of breath. Currently rates pain 11/24. Related Data Home Medications ?Medication ?Instructions ?Recorded ?Confirmed ?Last Taken ?Type clindamycin HCl 300 mg capsule mg 02/28/25 Unknown History ondansetron 4 mg disintegrating mg 02/28/25 Unknown History tablet Allergies Allergy/AdvReac Type Severity Reaction Status Date / Time No Known Allergies Allergy Verified 02/28/25 15:32 PMFSH Past Medical History Medical History Fracture of left wrist Generalized anxiety disorder Social History Social History (Reviewed 02/28/25 @ 16:11 by Sima Cárdenas, [facility], ) Smoking status: Current every day smoker Tobacco type: e-cigarettes/vaping Alcohol intake: current Substance use: never Living arrangements: with family Occupation/Education: occupation Additional occupation/education comments: [employer] Gender identity (if verbalized by the patient): Male Comments At time of signature, I have reviewed and agree with nursing past medical, surgical, social and family history unless otherwise noted. Please see nursing chart for further information. There is no relevant family history pertinent to the presenting complaint Exam Narrative: GENERAL: Well-appearing, well-nourished, and in no acute distress. HEAD: Normocephalic, atraumatic. EYES: EOMI. No redness or drainage. Conjunctivae normal. ENT: Mucous membranes pink and moist. Throat normal. Uvula midline. Mild sublingual swelling. No sublingual tenderness to palpation. Mild erythema to the right lower posterior gum line surrounding the wisdom tooth that is painful. No obvious periapical abscess. Moderate right lower jaw swelling that is tender to palpation. This extends to the submandibular area. No obvious erythema of the face or lower jaw, but somewhat difficult to assess given facial hair. + trismus noted. Patient is able to open his mouth approximately 3 fingerbreadths. NECK: Normal AROM. Supple. No lymphadenopathy. CHEST: No respiratory distress. Clear to auscultation. HEART: Regular rate and rhythm. No murmur appreciated. EXTREMITIES: Normal range of motion. No edema. SKIN: Warm, dry, no rash. Capillary refill normal. Normal skin turgor. NEURO: No focal deficits. Alert and oriented x3. Gait steady. PSYCH: Normal affect. No signs of depression or anxiety. Course Course Level of Care: Express Care Visit Vital Signs Vital signs: Vital Signs Temperature 98.5 F 02/28/25 15:30 Pulse Rate 60 02/28/25 15:30 Respiratory Rate 20 02/28/25 15:30 Blood Pressure 143/74 H 02/28/25 15:30 Pulse Oximetry 100 02/28/25 15:30 Oxygen Delivery Room Air 02/28/25 15:30 Temperature 98.5 F 02/28/25 15:30 Pulse Rate 60 02/28/25 15:30 Respiratory Rate 20 02/28/25 15:30 Blood Pressure 143/74 H 02/28/25 15:30 Pulse Oximetry 100 02/28/25 15:30 Oxygen Delivery Room Air 02/28/25 15:30 Reviewed Transfer Transfered to: [facility] Transportation: Other (private vehicle) Transfer rationale: Facial swelling, dental infection, failure of 2 outpatient antibiotics. Accepting physician: Jose. Report given to Davonte Lee NP MDM - Dental/Oral MDM Narrative Medical decision making narrative: 25-year-old male patient presents today with ongoing dental pain and facial swelling. He was initially seen at [facility] 4 days ago and put on amoxicillin. Due to continued facial swelling he was seen 2 days ago at [facility], worked up and subsequently placed on clindamycin. Face has continued to swell now includes trismus and globus sensation in the throat as well as some swelling under the tongue. Upon exam patient does have some mild sublingual swelling as well as some moderate right lower jaw swelling and tenderness, erythema of the gumline surrounding the right lower wisdom tooth as well as some trismus. Recommend ER transfer for re-evaluation. Patient does not want to return to [facility], and would like to go at [facility]. Vital signs stable. Differential Diagnosis Differential diagnosis: Likely gingival abscess, dental abscess, fracture of tooth and other (ludwigs angina) Critical Care Time Critical Care Time Critical Care Time: No Discharge Plan Discharge Clinical Impression: Dental abscess Patient Disposition: Acute Care Hospital Condition: Stable Patient Language: Burkinan Prescriptions: No Action amoxicillin 875 mg tablet 875 mg PO Q12H 10 Days Qty: 20 0RF hydrocodone-acetaminophen 5-325 mg tablet 1 tablet PO Q6H PRN (Reason: pain) Qty: 10 0RF clindamycin HCl 300 mg capsule ondansetron 4 mg tablet,disintegrating Follow-up/Referrals: PHYSICIAN,MINUTE CLERK FOR BASIC TRAFFIC [Primary Care Provider] -
== END 2025-02-28 16:13 | disposition short-term general hospital (02) ==
PROVIDERS: Emergency Provider Nurse Practitioner
DX: K04.7 Periapical abscess without sinus (principal); F17.290 Nicotine dependence, other tobacco product, uncomplicated
CPT/HCPCS: 99212; G0463

== ENCOUNTER 2025-02-28 17:16 | Emergency (ER) | payer OTHER, SELFPAY ==
--- NOTE | ~2025-02-28 | XR_ITS ---
CHEST RADIOGRAPH, PA AND LATERAL CLINICAL HISTORY: concern for upper airway swelling . COMPARISON: None available TECHNIQUE: PA and lateral views of the chest. FINDINGS The cardiomediastinal silhouette is unremarkable. The lungs are clear. IMPRESSION: No focal infiltrate or effusion. Reviewed, dictated and finalized at location A.
--- NOTE | ~2025-02-28 | CT_ITS ---
EXAMINATION: CT soft tissue neck w con DATE: 02/28/2025 21:34 INDICATION: Right jaw swelling, dental infection TECHNIQUE: Computed tomography (CT) of the neck was performed with 75 mL Omnipaque-350 intravenous co ntrast. Automated exposure control and iterative reconstruction technique were employed. The dose-brian gth product was 499.46 mGy-cm. COMPARISON: None FINDINGS: Multifocal dental caries. Periapical lucencies at the roots of the bilateral maxillary and mandibular molars. The largest is present at the posterior left maxillary molar, with bilateral cortical breakt hrough, and a 7 mm rim-enhancing collection laterally, no suspicious soft tissue finding medially. T he thyroid gland is unremarkable. The submandibular and parotid glands are symmetric. Enlarged up per right anterior cervical chain lymph nodes. Multiple prominent sublingual lymph nodes. Fluid densi ty collection with early rim enhancement, running along the entire length of the inner aspect of the right mandible, measuring 8 mm in greatest thickness, 15 mm CC and 4.8 cm in length. The superior mediastinum is unremarkable. The airway is unremarkable. Parapharyngeal and pre-glottic fat plane s are preserved. Normal enhancing neck vessels The orbits are unremarkable. Mild inferior left m axillary mucosal thickening. The remaining visualized sinuses and mastoid air cells are well aerated. Biapical pleural scarring. IMPRESSION: 0.8 x 1.5 x 4.8 cm soft tissue abscess along the inner aspect of the right mandible, probably odontog enic in origin noting that no definite site of cortical breakthrough is identified. 7 mm odontogenic abscess adjacent to the roots of the left posterior maxillary molar. Multifocal dental caries and periodontal disease. Reviewed, dictated and finalized at location K. IMPRESSION: 0.8 x 1.5 x 4.8 cm soft tissue abscess along the inner aspect of the right nikki ible, probably odontogenic in origin noting that no definite site of cortical b reakthrough is identified. 7 mm odontogenic abscess adjacent to the roots of the left posterior maxillary molar. Multifocal dental caries and periodontal disease.
--- OUTSIDE RECORDS SUMMARY | 2025-02-28 17:18 | XMS_ITS | Clinical Summary ---
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
--- OUTSIDE RECORDS SUMMARY | 2025-02-28 17:18 | XMS_ITS | Clinical Summary ---
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 [...] Denzel Navarro M.D. KH: SANDY Report ID: [id number] Reading Location: [id number] Procedure Note Denzel Navarro MD - 02/25/2025 [...] TISSUE: The soft tissues within the right telephone interviewer space medialto the right mandible ramus appears [...] tissue swelling and fluid in the right telephone interviewer space medialto the right mandible ramus. This appearance is most suggestive of ainfectious process. This may represent a phlegmon. No clearly defined abscess is seenat this time. The posterior pharynx is deviated to the left. 2. Bilateral posterior dental caries are noted. THIS IS AN ELECTRONICALLY VERIFIED FINAL REPORT 02/25/2025 10:46 PM - Electronically signed by Denzel Navarro M.D. KH: SANDY Report ID: [id number] Reading Location: [place] [address] PROCEDURES Final Result * Sepsis Lactate w/ Reflex (02/25/2025 8:31 PM CDT) Sepsis Lactate 1.1 0.7 - 2.0 mmol/L Blood 02/25/2025 8:31 PM CDT 02/25/2025 8:42 PM CDT Patricia MARTIN LAB BLOOD ORDERABLES Final Resu lt [facility] [place] 1 [facility] Department [place] [address] * eGFR (02/25/2025 8:31 PM [...] LAB BLOOD ORDERABLES Final Resu lt [facility] ([place] 1 [facility] Department [place] [address] * (ABNORMAL) Differential, auto (02/25/2025 8:31 PM CDT) Neutrophil abs 8.04(H) 1.50 - 6.50 K/cumm Imm gran abs 0.04 0.00 - 0.10 K/cumm [facility] ([place]) Lymphocyte abs 1.27 0.80 - 3.30 K/cumm [facility] ([place]) Monocyte abs 1.72(H) 0.20 - 0.80 K/cumm [facility] ([place]) Eosinophil abs 0.01 0.00 - 0.50 K/cumm [facility] ([place]) Basophil abs 0.04 0.00 - 0.10 K/cumm [facility] ([place]) Neutrophil pct 72.2 % [facility] ([place]) Comment: Interpretive Data Percent cell count reference [...] Final Resu lt [facility] ([place] 1 [facility] Department [place] [address] * (ABNORMAL) CBC with auto differential (02/25/2025 [...] Final Resu lt [facility] ([place] 1 [facility] Department [place] [address] * (ABNORMAL) Comprehensive metabolic panel (02/25/2025 8:31 [...] Final Resu lt [facility] ([place] 1 [facility] Department [place] [address] from Last 3 Months Insurance [facility] H[facility]/PP[facility] Address: [address] [facility] CHOICE PLUS [facility] HMO/PPO Address: [address] [address] [place] [address] Care Teams Dressing Room Porter Relationship Specialty Start Date End Date Stephanie Lomax MD PCP - General 04/09/17
[2025-02-28 17:56] VITALS: BP 140/76; PULSE 70; RESP 16; TEMP 36.7; O2SAT 100
--- NOTE | 2025-02-28 18:02 | ED_ITS ---
HPI - Dental/Oral General Chief complaint: Dental/Oral <Joanzan Lee APRN - Last Filed: 02/28/25 18:07> Stated complaint: swelling under tongue <Joan Lee APRN - Last Filed: 02/28/25 18:07> Time Seen by Provider: 02/28/25 18:00 <Joan Lee APRN - Last Filed: 02/28/25 18:07> Focused HPI: Patient is a 25-year-old male who presents to the ER with his concerns for oral swelling. He reports he started experiencing symptoms approximately 6 days ago. Patient reports he has four cracked wisdom teeth and an appointment to have his wisdom teeth removed on Tuesday, in 6 days. He reports he was put on amoxicillin about a week ago by urgent care. Patient reports his symptoms were not getting better so he went to [place] emergency department 3 days ago and they put him on ciprofloxacin. He reports his symptoms have not improved so he went to urgent care again earlier today. They advised patient come to the ER for a CT scan. Patient endorses difficulty swallowing and drooling. He denies any sore throat, recent fever, mastoid tenderness or neck stiffness. GENERAL: Well-appearing, well-nourished, and in no acute distress. HEAD: Normocephalic, atraumatic. + cervical adenopathy (R>L), NO UVULA DEVIATION CHEST: Clear to auscultation. ?No respiratory distress. HEART: Regular rate and rhythm.? NEURO: ?Alert and oriented x3. Patient screened in triage and initial orders placed.? ?Additional care and disposition to be based upon?diagnostic testing and treatment. <Joan Lee APRN - Last Filed: 02/28/25 18:07> Focused HPI: Patient is a 25-year-old male who presents to the ER with his concerns for oral swelling. He reports he started experiencing symptoms approximately 6 days ago. Patient reports he has four cracked wisdom teeth and an appointment to have his wisdom teeth removed on Tuesday, in 6 days. He reports he was put on amoxicillin about a week ago by urgent care. Patient reports his symptoms were not getting better so he went to [place] emergency department 3 days ago and they put him on ciprofloxacin. He reports his symptoms have not improved so he went to urgent care again earlier today. They advised patient come to the ER for a CT scan. Patient endorses difficulty swallowing. He denies any sore throat, recent fever, mastoid tenderness or neck stiffness. GENERAL: Well-appearing, well-nourished, and in no acute distress. HEAD: Normocephalic, atraumatic. Right-sided jaw swelling, + cervical adenopathy (R>L), NO UVULA DEVIATION. no base of tongue swelling, no submandibular swelling or contralateral face swelling. No trismus. No proptosis of the ear canal or mastoid tenderness. Intraoral examination shows poor dentition, tenderness along the premolar area on the right side but no fluctuant masses or obvious apical abscess formation or drainage CHEST: Clear to auscultation. ?No respiratory distress. HEART: Regular rate and rhythm.? NEURO: ?Alert and oriented x3. Patient screened in triage and initial orders placed.? ?Additional care and disposition to be based upon?diagnostic testing and treatment. <Herminio Swanson MD - Last Filed: 03/01/25 06:12> History of Present Illness HPI Narrative: agree with the HPI above <Herminio Swanson MD - Last Filed: 03/01/25 06:12> Related Data Home medications: Home Medications ?Medication ?Instructions ?Recorded ?Confirmed ?Last Taken ?Type clindamycin HCl 300 mg capsule mg 02/28/25 Unknown History ondansetron 4 mg disintegrating mg 02/28/25 Unknown History tablet <Joan Lee APRN - Last Filed: 02/28/25 18:07> Allergies/adverse reactions: Allergies Allergy/AdvReac Type Severity Reaction Status Date / Time No Known Allergies Allergy Verified 02/28/25 18:01 <Joan Lee APRN - Last Filed: 02/28/25 18:07> Review of Systems 2 Review of Systems: as reviewed above in HPI <Herminio Swanson MD - Last Filed: 03/01/25 06:12> PMFSH Past Medical History Medical History: Medical History Fracture of left wrist Generalized anxiety disorder <Joan Lee APRN - Last Filed: 02/28/25 18:07> Social History Social History: Social History Smoking status: Current every day smoker Tobacco type: e-cigarettes/vaping Alcohol intake: current Substance use: never Living arrangements: with family Occupation/Education: occupation Additional occupation/education comments: [employer] Gender identity (if verbalized by the patient): Male <Joan Lee APRN - Last Filed: 02/28/25 18:07> Exam 2 Narrative: GENERAL: Well-appearing, well-nourished, and in no acute distress. HEAD: Normocephalic, atraumatic. Right-sided jaw swelling, + cervical adenopathy (R>L), NO UVULA DEVIATION. no base of tongue swelling, no submandibular swelling or contralateral face swelling. No trismus. No proptosis of the ear canal or mastoid tenderness. Intraoral examination shows poor dentition, tenderness along the premolar area on the right side but no fluctuant masses or obvious apical abscess formation or drainage CHEST: Clear to auscultation. ?No respiratory distress. HEART: Regular rate and rhythm.? NEURO: ?Alert and oriented x3. <Herminio Swanson MD - Last Filed: 03/01/25 06:12> Course Vital Signs Vital signs: Vital Signs Temperature 36.7 C 02/28/25 17:56 Pulse Rate 70 02/28/25 17:56 Respiratory Rate 16 02/28/25 17:56 Blood Pressure 140/76 02/28/25 17:56 Pulse Oximetry 100 02/28/25 17:56 Oxygen Delivery Room Air 02/28/25 17:56 Temperature 36.9 C 03/01/25 00:44 Pulse Rate 65 03/01/25 00:44 Respiratory Rate 16 03/01/25 00:44 Blood Pressure 128/76 03/01/25 00:44 Pulse Oximetry 98 03/01/25 00:44 Oxygen Delivery Room Air 02/28/25 17:56 <Joan Lee APRN - Last Filed: 02/28/25 18:07> Vital Signs Temperature 36.7 C 02/28/25 17:56 Pulse Rate 70 02/28/25 17:56 Respiratory Rate 16 02/28/25 17:56 Blood Pressure 140/76 02/28/25 17:56 Pulse Oximetry 100 02/28/25 17:56 Oxygen Delivery Room Air 02/28/25 17:56 Temperature 36.9 C 03/01/25 00:44 Pulse Rate 65 03/01/25 00:44 Respiratory Rate 16 03/01/25 00:44 Blood Pressure 128/76 03/01/25 00:44 Pulse Oximetry 98 03/01/25 00:44 Oxygen Delivery Room Air 02/28/25 17:56 <Herminio Swanson MD - Last Filed: 03/01/25 06:12> MDM - Dental/Oral MDM Narrative Medical decision making narrative: Patient is a 25-year-old male who presents to the ER with his concerns for oral swelling. He reports he started experiencing symptoms approximately 6 days ago. Patient reports he has four cracked wisdom teeth and an appointment to have his wisdom teeth removed on Tuesday, in 6 days. He reports he was put on amoxicillin about a week ago by urgent care. Patient reports his symptoms were not getting better so he went to [place] emergency department 3 days ago and they put him on ciprofloxacin. He reports his symptoms have not improved so he went to urgent care again earlier today. They advised patient come to the ER for a CT scan. Patient endorses difficulty swallowing. He denies any sore throat, recent fever, mastoid tenderness or neck stiffness. patient's physical examination shows some right-sided facial jaw swelling although does not cross the left side and there is no submandibular swelling. No base of tongue swelling or brawny neck edema. Mild lymphadenopathy in the right side of the neck consistent with area of patient's pain. Poor dentition but no apical abscess or obvious drainage in the mouth. He is hemodynamically stable normal vital signs. Afebrile without any tachycardia. Suspicion presently is for dental abscess or dental infection, wisdom teeth with impaction likely causing pain. He was on several course of antibiotics. Given patient's symptomatology IV was established and blood work obtained. Strep and mono testing ordered. CT of the neck with soft tissue protocol and IV contrast obtained. He was given Unasyn Decadron and fluids and re-evaluated. Patient has a dentist appointment in 6 days for extraction. Patient has a large abscess in the right mandibular region likely odontogenic in nature. I discussed the case with Dr. Eldon Bauman hearings reporter who recommended transfer to a tertiary care center for dental surgery and extraction/abscess drainage today. Patient was updated the plan and okay with transfer. Spoke to the [facility] transfer system was connected with the hearings reporter Dr. Bell who also recommended emergent transfer to the ER at their facility for evaluation and likely drainage in the operating room verses the emergency department. Spoke with the ER physician Dr. Stoddard who accepted the transfer at this time. Patient initially okay with transferred via BLS ambulance however he bent declined and wished to go by private vehicle. This was arranged and report was called ahead. <Herminio Swanson MD - Last Filed: 03/01/25 06:12> Medical Records Attestation: I reviewed the patient's medical records. <Herminio Swanson MD - Last Filed: 03/01/25 06:12> Lab Data Attestation: I reviewed the patient's lab results. <Herminio Swanson MD - Last Filed: 03/01/25 06:12> Result diagrams: 02/28/25 19:10 02/28/25 19:09 <Joan Lee APRN - Last Filed: 02/28/25 18:07> Labs: Lab Results 02/28/25 02/28/25 02/28/25 Range/Units 19:09 19:10 19:17 WBC 8.2 (4.5-10.0) K/mm3 RBC 5.21 (4.6-6.20) M/mm3 Hgb 15.1 (14.0-18.0) g/dL Hct 44.6 (42.0-52.0) % MCV 85.6 (80-100) fl MCH 29.0 (26-34) pg MCHC 33.9 (32-36) g/dl RDW 12.0 (11.5-14.5) % Plt Count 305 (150-375) k/mm3 MPV 8.5 (7.4-10.4) fl Immature Gran % (Auto) 0.4 (0-0.5) % Neut % (Auto) 66.3 (45.5-73.1) % Lymph % (Auto) 22.7 (18.3-44.2) % [place] % (Auto) 9.6 H (2.6-8.5) % Eos % (Auto) 0.6 (0-4.4) % Baso % (Auto) 0.4 (0.2-1.2) % Lymph # (Auto) 1.87 (0.9-3.2) K/mm3 [place] # (Auto) 0.8 H (0.1-0.6) K/mm3 Eos # (Auto) 0.1 (0-0.3) K/mm3 Baso # (Auto) 0.0 (0.0-0.1) K/mm3 Abs Immat Gran (auto) 0.03 (0.00-0.031) K/mm3 Absolute Neuts (auto) 5.5 (1.3-6.7) K/mm3 Absolute Nucleated RBC 0.000 (0.0-0.012) K/mm3 Nucleated RBC % 0.0 (0.0-0.2) % PT 14.2 (11.1-14.7) Seconds INR 1.1 APTT 29.8 (22.3-36.8) Seconds Sodium 138 (137-145) mmol/L Potassium 3.8 (3.4-5.0) mmol/L Chloride 101 (98-107) mmol/L Carbon Dioxide 23 (22-30) mmol/L Anion Gap 14 H (4-12) mmol/L BUN 18 (9-20) mg/dL Creatinine 1.04 (0.7-1.3) mg/dL Estim Creat Clear Calc 110 ml/min Estimated GFR > 60 (59 - ) Glucose 88 (65-110) mg/dL Lactic Acid 0.9 (0.7-2.0) mmol/L Calcium 9.6 (8.4-10.2) mg/dL Total Bilirubin 1.2 (0.2-1.3) mg/dL AST 25 (17-59) U/L ALT 14 (6-50) U/L Alkaline Phosphatase 51 (38-126) U/L C-Reactive Protein 2.0 H (<1.0) mg/dL Total Protein 8.9 H (6.3-8.2) g/dL Albumin 5.0 (3.5-5.1) g/dL Monoscreen Negative (Negative) Group A Strep (PCR) Not detected (Negative) <Joan Lee, HOUSEHOLD APPLIANCE REPAIRER - Last Filed: 02/28/25 18:07> Lab Results 02/28/25 02/28/25 02/28/25 Range/Units 19:09 19:10 19:17 WBC 8.2 (4.5-10.0) K/mm3 RBC 5.21 (4.6-6.20) M/mm3 Hgb 15.1 (14.0-18.0) g/dL Hct 44.6 (42.0-52.0) % MCV 85.6 (80-100) fl MCH 29.0 (26-34) pg MCHC 33.9 (32-36) g/dl RDW 12.0 (11.5-14.5) % Plt Count 305 (150-375) k/mm3 MPV 8.5 (7.4-10.4) fl Immature Gran % (Auto) 0.4 (0-0.5) % Neut % (Auto) 66.3 (45.5-73.1) % Lymph % (Auto) 22.7 (18.3-44.2) % [place] % (Auto) 9.6 H (2.6-8.5) % Eos % (Auto) 0.6 (0-4.4) % Baso % (Auto) 0.4 (0.2-1.2) % Lymph # (Auto) 1.87 (0.9-3.2) K/mm3 [place] # (Auto) 0.8 H (0.1-0.6) K/mm3 Eos # (Auto) 0.1 (0-0.3) K/mm3 Baso # (Auto) 0.0 (0.0-0.1) K/mm3 Abs Immat Gran (auto) 0.03 (0.00-0.031) K/mm3 Absolute Neuts (auto) 5.5 (1.3-6.7) K/mm3 Absolute Nucleated RBC 0.000 (0.0-0.012) K/mm3 Nucleated RBC % 0.0 (0.0-0.2) % PT 14.2 (11.1-14.7) Seconds INR 1.1 APTT 29.8 (22.3-36.8) Seconds Sodium 138 (137-145) mmol/L Potassium 3.8 (3.4-5.0) mmol/L Chloride 101 (98-107) mmol/L Carbon Dioxide 23 (22-30) mmol/L Anion Gap 14 H (4-12) mmol/L BUN 18 (9-20) mg/dL Creatinine 1.04 (0.7-1.3) mg/dL Estim Creat Clear Calc 110 ml/min Estimated GFR > 60 (59 - ) Glucose 88 (65-110) mg/dL Lactic Acid 0.9 (0.7-2.0) mmol/L Calcium 9.6 (8.4-10.2) mg/dL Total Bilirubin 1.2 (0.2-1.3) mg/dL AST 25 (17-59) U/L ALT 14 (6-50) U/L Alkaline Phosphatase 51 (38-126) U/L C-Reactive Protein 2.0 H (<1.0) mg/dL Total Protein 8.9 H (6.3-8.2) g/dL Albumin 5.0 (3.5-5.1) g/dL Monoscreen Negative (Negative) Group A Strep (PCR) Not detected (Negative) <Herminio Swanson MD - Last Filed: 03/01/25 06:12> Imaging Data Attestation: I personally reviewed and interpreted this imaging study as follows: < Herminio Swanson MD - Last Filed: 03/01/25 06:12> My impression: Impressions Chest X-Ray 02/28/25 18:45 IMPRESSION: No focal infiltrate or effusion. Soft Tissue Neck CT 02/28/25 21:45 IMPRESSION: 0.8 x 1.5 x 4.8 cm soft tissue abscess along the inner aspect of the right mandible, probably odontogenic in origin noting that no definite site of cortical breakthrough is identified. 7 mm odontogenic abscess adjacent to the roots of the left posterior maxillary molar. Multifocal dental caries and periodontal disease. <Herminio Swanson MD - Last Filed: 03/01/25 06:12> Discharge Plan Discharge Clinical Impression: Dental abscess, Mandibular abscess <Joan Lee APRN - Last Filed: 02/28/25 18:07> Patient Disposition: Acute Care Hospital <Joan Lee APRN - Last Filed: 02/28/25 18:07> Condition: Stable <Joan Lee APRN - Last Filed: 02/28/25 18:07> Patient Language: Spanish <Joan Lee APRN - Last Filed: 02/28/25 18:07> Prescriptions: No Action amoxicillin 875 mg tablet 875 mg PO Q12H 10 Days Qty: 20 0RF hydrocodone-acetaminophen 5-325 mg tablet 1 tablet PO Q6H PRN (Reason: pain) Qty: 10 0RF clindamycin HCl 300 mg capsule ondansetron 4 mg tablet,disintegrating <Joan Lee APRN - Last Filed: 02/28/25 18:07> Follow-up/Referrals: Bipin Walden DO [Primary Care Provider] - <Joan Lee APRN - Last Filed: 02/28/25 18:07>
[2025-02-28 19:18] LABS: Hematocrit 44.6 % (42.0-52.0); Hemoglobin 15.1 g/dL (14.0-18.0); Immature Granulocyte Percent A 0.4 % (0-0.5); Lymphocytes Absolute Auto 1.87 K/mm3 (0.9-3.2); Mean Corpuscular HGB Conc 33.9 g/dl (32-36); Mean Corpuscular Hemoglobin 29.0 pg (26-34); Mean Corpuscular Volume 85.6 fl (80-100); Nucleated Red Blood Cells Absolute Auto 0.000 K/mm3 (0.0-0.012); Nucleated Red Blood Cells Perc 0.0 % (0.0-0.2); Platelet Count Result 305 k/mm3 (150-375); Red Blood Count 5.21 M/mm3 (4.6-6.20); White Blood Count 8.2 K/mm3 (4.5-10.0)
[2025-02-28 19:32] LABS: INR 1.1; Prothrombin Time 14.2 Seconds (11.1-14.7)
[2025-02-28 19:33] LABS: Partial Thromboplastin Time 29.8 Seconds (22.3-36.8)
[2025-02-28 19:45] LABS: Alanine Aminotransferase 14 U/L (6-50); Albumin Level 5.0 g/dL (3.5-5.1); Alkaline Phosphatase 51 U/L (38-126); Anion Gap 14 mmol/L (4-12); Aspartate Amino Transferase 25 U/L (17-59); Bilirubin,Total 1.2 mg/dL (0.2-1.3); Blood Urea Nitrogen 18 mg/dL (9-20); CRP 2.0 mg/dL (<1.0); Calcium 9.6 mg/dL (8.4-10.2); Carbon Dioxide 23 mmol/L (22-30); Chloride 101 mmol/L (98-107); Estimated CRCL calculation 110 ml/min; Estimated Glomerular Filt Rate > 60; Glucose 88 mg/dL (65-110); Potassium 3.8 mmol/L (3.4-5.0); Sodium 138 mmol/L (137-145); Total Protein 8.9 g/dL (6.3-8.2)
[2025-02-28 19:46] LABS: Strep Group A RT-PCR NOT DETECTED (Negative)
[2025-02-28 20:01] LABS: Negative Monotest Control Negative (Negative); Positive Monotest Control Positive (Positive)
--- NOTE | 2025-02-28 20:11 | PC.NURSE ---
MD made aware of patient pain.
--- OUTSIDE RECORDS SUMMARY | 2025-02-28 20:46 | XMS_ITS | Clinical Summary ---
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 [...] Denzel Navarro M.D. KH: SANDY Report ID: [id number] Reading Location: [id number] Procedure Note Denzel Navarro MD - 02/25/2025 [...] TISSUE: The soft tissues within the right email producer space medialto the right mandible ramus appears [...] tissue swelling and fluid in the right email producer space medialto the right mandible ramus. This appearance is most suggestive of ainfectious process. This may represent a phlegmon. No clearly defined abscess is seenat this time. The posterior pharynx is deviated to the left. 2. Bilateral posterior dental caries are noted. THIS IS AN ELECTRONICALLY VERIFIED FINAL REPORT 02/25/2025 10:46 PM - Electronically signed by Denzel Navarro M.D. KH: SANDY Report ID: [id number] Reading Location: [place] [address] PROCEDURES Final Result * Sepsis Lactate w/ Reflex (02/25/2025 8:31 PM CDT) Sepsis Lactate 1.1 0.7 - 2.0 mmol/L Blood 02/25/2025 8:31 PM CDT 02/25/2025 8:42 PM CDT Patricia MARTIN LAB BLOOD ORDERABLES Final Resu lt [facility] [place] 1 [facility] [place] [address] * eGFR (02/25/2025 8:31 PM [...] LAB BLOOD ORDERABLES Final Resu lt [facility] ([place]) 1 [facility] [place] [address] * (ABNORMAL) Differential, auto (02/25/2025 8:31 PM CDT) Neutrophil abs 8.04(H) 1.50 - 6.50 K/cumm Imm gran abs 0.04 0.00 - 0.10 K/cumm [facility] ([place]) Lymphocyte abs 1.27 0.80 - 3.30 K/cumm [facility] ([place]) Monocyte abs 1.72(H) 0.20 - 0.80 K/cumm [facility] ([place]) Eosinophil abs 0.01 0.00 - 0.50 K/cumm [facility] ([place]) Basophil abs 0.04 0.00 - 0.10 K/cumm [facility] ([place]) Neutrophil pct 72.2 % [facility] ([place]) Comment: Interpretive Data Percent cell count reference [...] Final Resu lt [facility] ([place] 1 [facility] [place] [address] * (ABNORMAL) CBC with auto differential (02/25/2025 [...] Final Resu lt [facility] ([place] 1 [facility] [place] [address] * (ABNORMAL) Comprehensive metabolic panel (02/25/2025 8:31 [...] Final Resu lt [facility] ([place] 1 [facility] [place] [address] from Last 3 Months Insurance Member Subscriber Plan / Payer (Ef fective 2019-Present) Name:Elio Angel Relation to Subscriber:Other Relationship Name:JOSEPH ANGEL Date of :1973 (Home) Address: [facility] [place] [address] Payer ID:[id number] (NAIC) Type:[facility] H[facility]/PP[facility] Address: [address] [facility] CHOICE PLUS Care Teams Senior Billing Consultant Relationship Specialty Start Date End Date Stephanie Lomax MD PCP - General 04/09/17
--- OUTSIDE RECORDS SUMMARY | 2025-02-28 20:46 | XMS_ITS | Clinical Summary ---
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 Care Teams Antenna Engineer Relationship Specialty Start Date End Date Provider, None [place] PCP - General 07/22/18
--- NOTE | 2025-02-28 21:23 | PC.NURSE ---
ok to only obtain 1st set of blood cultures per edp gertrude
[2025-02-28] MEDS: AMPICILLIN SODIUM/SULBACTAM 3 GM in SODIUM CHLORIDE 0.9% IV 100 ML 200 ML IVPB (21:26)
[2025-02-28] MEDS: LACTATED RINGERS 1,000 ML 999 ML IV CONT (21:29)
[2025-02-28] MEDS: dexAMETHasone SOD PHOS INJ 10 MG/ML 1 ML VIAL IV PUSH (21:29)
[2025-02-28] MEDS: ONDANSETRON INJ 4 MG/2 ML VIAL IV PUSH (21:52)
--- NOTE | 2025-03-01 00:16 | PC.NURSE ---
pt refusing ems. EDP torossian aware and ok with private vehicle transfer. Pt understanding that IV will have to be removed and restarted at [facility].
--- NOTE | 2025-03-01 00:19 | PC.NURSE ---
SOO ZAMBRANO - report to [facility]
[2025-03-01 00:43] VITALS: BP 128/76; PULSE 65; RESP 16; TEMP 36.9; O2SAT 98
[2025-03-01 00:44] VITALS: BP 128/76; PULSE 65; RESP 16; TEMP 36.9; O2SAT 98
== END 2025-03-01 00:45 | disposition short-term general hospital (02) ==
PROVIDERS: Registered Nurse; Emergency Provider Student in an Organized Health Care Education/Training Program; PCP Family Medicine
DX: K04.7 Periapical abscess without sinus (principal); M27.2 Inflammatory conditions of jaws; F17.290 Nicotine dependence, other tobacco product, uncomplicated; K02.9 Dental caries, unspecified
CPT/HCPCS: 36415; 70491; 71046; 80053; 83605; 85025; 85610; 85730; 86140; 86308; 87040; 87651; 96365; 96375; 99284; J0295; J1100; J2405; J7120; Q9967

== ENCOUNTER 2025-07-04 10:36 | Emergency (ER) | payer OTHER, SELFPAY ==
[2025-07-04 10:44] VITALS: BP 120/72; PULSE 91; RESP 20; TEMP 37.1; O2SAT 100
--- OUTSIDE RECORDS SUMMARY | 2025-07-04 11:31 | XMS_ITS | Clinical Summary ---
Author Organization [facility] Address [address] [place] [address] Phone Care Team Providers Care Shipping And Receiving Weigher Name Role Phone Provider, None Primary Care [...] Active Active Problems No known active problems Family History Medical History Relation Name Comments [...] on file Legal Sex Male 1:33 PM HOME CARE NURSE Gender Identity Not on file Sexual Orientation [...] 81.6 kg (180 lb) 07/22/2018 2:02 PM HOME CARE NURSE Height 188 cm (6' 2) 07/22/2018 2:02 PM HOME CARE NURSE Body Mass Index 23.11 07/22/2018 2:02 PM HOME CARE NURSE Plan of Treatment Health Maintenance Due Date Last Done Comments Hepatitis C Virus (HCV) Screening 2000 Influenza Immunization (#1) 2025 04/21/2012 SARS-COV-2 Immunization ( season) 2025 Respiratory Syncytial Virus (RSV) Immunization (Adult) (1 - 1-dose 75+ series) 01/24/2075 Pneumococcal Immunization Combined Aged Out 2000, 2000, 2000 No longer eligible based on patient's age to complete this topic Hepatitis B Immunization Completed 002, 2000, 2000, Additional history exists DTaP/Tdap/Td Immunization Discontinued 2010, 01/26/2005, 05/23/2001, Additional history exists TdaP Immunization Completed 04/21/2011 Varicella Immunization Completed 04/21/2011, 2000 Human Papillomavirus (HPV) Immunization Completed 01/10/2015, 01/09/2014, 02/07/2013 Meningococcal Immunization (ACWY) Completed 02/24/2016, 04/21/2011 Rotavirus Immunization Aged Out No lo nger eligible based on patient's age to complete this topic Insurance [facility] Care Teams Shipping And Receiving Weigher Relationship Specialty Start Date End Date Provider, None JUN PCP - General 07/22/18
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
[2025-07-04 11:35] LABS: EDCOVIDSCREEN Negative (Negative); EDINFLUASCREEN Negative (Negative); EDINFLUBSCREEN Negative (Negative); EDSTREPNEGPOS1 Negative (Negative)
--- NOTE | 2025-07-04 12:04 | ED.URI ---
HPI - URI/Sore Throat General Chief Complaint: Upper Respiratory Infection Stated Complaint: Flu like symptoms Time Seen by Provider: 07/04/25 11:30 Source: patient and RN notes reviewed Mode of arrival: ambulatory Limitations: no limitations History of Present Illness HPI Narrative: 25-year-old male patient presents Express Care complaining of upper respiratory symptoms for 2 days. Patient reports cough, congestion, sore throat, or runny nose. Patient denies any other symptoms. Patient denies any chest pain difficulty breathing. Patient has been taking Tylenol Mucinex to help with symptoms. Related Data Allergies Allergy/AdvReac Type Severity Reaction Status Date / Time No Known Allergies Allergy Verified 07/04/25 10:53 Review of Systems Review of Systems: CONSTITUTIONAL: Denies fever, chills, or sweats. EYES: Denies visual changes, redness, or discharge. ENT: Positive for rhinorrhea, congestion, sore throat. Negative for otalgia. CARDIOVASCULAR: Denies chest pain, palpitations, or edema. RESPIRATORY: Positive for cough. Negative for wheezing or dyspnea. GASTROINTESTINAL: Denies abdominal pain, nausea, vomiting, or diarrhea. GENITOURINARY: Denies dysuria or hematuria. SKIN: Denies rash or itching. MUSCULOSKELETAL: Denies back pain, joint pain, or myalgia. NEUROLOGIC: Denies headache, numbness, or weakness. PSYCHIATRIC: Denies anxiety or depression. All other systems reviewed are negative, except as documented in HPI. [facility] Past Medical History Medical History Fracture of left wrist Generalized anxiety disorder Social History Social History Smoking status: Current every day smoker Tobacco type: e-cigarettes/vaping Alcohol intake: current Substance use: never Living arrangements: with family Occupation/Education: occupation Additional occupation/education comments: [employer] Gender identity (if verbalized by the patient): Male Comments At the time of my signature, I reviewed and agree with the nursing past medical, surgical, social, and family history. There is no relevant family history pertinent to the patient complaint. Exam Narrative: GENERAL: This is a well-nourished, well-developed adult, in no apparent distress. They are non ill-appearing, nontoxic appearing. HEAD: normocephalic, atraumatic. EYES: Sclera clear/white. Conjunctiva normal. Vision is grossly intact. Extraocular movements intact EARS: External ears normal, auditory canals clear and without drainage, TMs normal without perforation. Hearing grossly intact. NOSE: External nose normal with no obvious nasal discharge, nasal turbinates erythematous with rhinorrhea. THROAT: Mucous membranes moist, posterior pharynx injected without swelling. PND present Uvula midline. NECK: Neck supple, mild tender cervical lymphadenopathy, no masses or thyromegaly. CARDIOVASCULAR: Regular rate and rhythm without murmurs, gallops, or rubs. RESPIRATORY: Clear to auscultation. Breath sounds equal bilaterally. No wheezes, rales, or rhonchi. SKIN: warm, Dry, intact with no suspicious lesions or rash, good texture and turgor. NEURO: awake, alert, and oriented to person, place and time. There were no obvious focal neurologic abnormalities. EXTREMITIES: No joint tenderness, effusion, or edema noted. BACK: Nontender without deformity. No CVA tenderness. Course Course Level of Care: Express Care Visit Vital Signs Vital signs: Vital Signs Temperature 98.8 F 07/04/25 10:44 Pulse Rate 91 07/04/25 10:44 Respiratory Rate 20 07/04/25 10:44 Blood Pressure 120/72 07/04/25 10:44 Pulse Oximetry 100 07/04/25 10:44 Oxygen Delivery Room Air 07/04/25 10:44 Temperature 98.8 F 07/04/25 10:44 Pulse Rate 91 07/04/25 10:44 Respiratory Rate 20 07/04/25 10:44 Blood Pressure 120/72 07/04/25 10:44 Pulse Oximetry 100 07/04/25 10:44 Oxygen Delivery Room Air 07/04/25 10:44 MDM MDM Narrative Medical decision making narrative: Rapid strep, COVID, flu negative. Throat culture pending. Symptoms likely viral in etiology. Will send him with a 1 time dose of dexamethasone for the sore throat due to patient's pain. Will send with benzonatate tablets for cough. Discussed supportive care. Discussed physical exam findings. Advised supportive measures and signs/symptoms to go to the ER. Pt is appropriate for outpt treatment and f/u. Differential Diagnosis Differential Diagnosis: Differential diagnostic considerations for upper respiratory infection include upper respiratory infection, croup, otitis media, sinusitis, viral infection, bronchitis, influenza, pharyngitis, strep, uvulitis. Lab Data [facility] Lab Attestation statement: I personally reviewed the patient's lab results. Labs: Lab Results 07/04/25 Range/Units 10:52 POC Influenza A Ag Negative (Negative) POC Influenza B Ag Negative (Negative) POC SARS CoV-2 Ag Negative (Negative) POC Grp A Strep Screen Negative (Negative) Critical Care Time Critical Care Time Critical Care Time: No Discharge Plan Discharge Clinical Impression: Upper respiratory infection Qualifiers: URI type: unspecified viral URI Qualified Code(s): J06.9 - Acute upper respiratory infection, unspecified Patient Disposition: Home Condition: Stable Instructions: Antibiotic Form, Upper Respiratory Infection (ED) Additional Instructions: Your rapid strep swab was negative today at [facility]. You will be notified in a few days if the culture comes back positive for strep, and appropriate antibiotics will be called in for you at that time. You were symptoms are likely due to a viral illness, which is not treated with antibiotics. Viral symptoms can be present for up to 10-14 days. Take Tylenol or Motrin as needed for fever or pain. Follow instructions on the bottle. Take dexamethasone as directed, is a 1 time dose. Benzonatate tablets as needed for cough. Rest and stay hydrated. Follow up with your PCP in 5-7 days if symptoms are not improving. Go to the ER immediately if you developed chest pain, vomiting, difficulty breathing or swallowing, or any serious concerns. Patient Language: Tamazight Prescriptions: New benzonatate 200 mg capsule 200 mg PO BID PRN (Reason: cough) Qty: 20 0RF dexamethasone 2 mg tablet 10 mg PO ONCE 1 Days Qty: 5 0RF Follow-up/Referrals: PHYSICIAN,SEWER CLEANER [Primary Care Provider, Internal Medicine] Stand Alone Forms: Work/School Release IP Time of Disposition: 11:48
== END 2025-07-04 11:53 | disposition home or self-care (01) ==
DX: J06.9 Acute upper respiratory infection, unspecified (principal); Z20.822 Contact with and (suspected) exposure to COVID-19; F17.290 Nicotine dependence, other tobacco product, uncomplicated
CPT/HCPCS: 87081; 87426; 87804; 87880; 99213; G0463